=== PATIENT | female | born 1955 | race African-American/Black ===

== ENCOUNTER → 2017-04-01 | Outpatient (CLI) | payer OTHER ==
[~2017-04-01] MED LIST: ALDACTONE50 MG PO; BENICAR20 MG PO; BYSTOLIC 5 MG5 M1 PO; CATAPRES0.2 MG PO; COZAAR 50 MG TA50 M2 PO; DICLOFENAC SOD50 M1 PO; HYDRALAZINE 2525 MG PO; LASIX 40 MG TAB40 M2 PO; NORVASC10 MG PO; TRIAMTERENE-HC1 EAC2 PO; TYLENOL325 MG PO; VICODIN 5-3001 EACH PO
== END ==
LOC: CAT 12:57
DX: Z13.6 Encounter for screening for cardiovascular disorders (principal)